=== PATIENT | female | born 1985 | race Two or more races ===

== ENCOUNTER 2022-07-11 09:29 | Emergency (ER) | payer OTHER ==
[~2022-07-11] VITALS: Ht 170.2 cm; Wt 67.1 kg
--- NOTE | 2022-07-11 09:50 | NUR ---
BIB SELF C/C MECHANICAL FALL. A/O X 3.
[2022-07-11] MEDS ORDERED: ACETAMINOPHEN ES 500 MG TABLET PO ONE (10:00)
--- NOTE | 2022-07-11 10:14 | NUR ---
BLOOD SAMPLES OBTAINED
[2022-07-11] MEDS ORDERED: ACETAMINOPHEN ES 500 MG TABLET ONE (10:16)
[2022-07-11] MEDS ORDERED: LIDOCAINE 1% INJ 50 ML MDV IJ ONE (11:25)
--- NOTE | 2022-07-11 11:56 | NUR ---
IV removed. Catheter intact and site benign. Pressure and 4x4 applied to site. No bleeding noted.
[2022-07-11 12:11] VITALS: BP 136/82
--- NOTE | 2022-07-11 12:12 | NUR ---
Patient discharged to home in stable condition. Written and verbal after care instructions given. Patient verbalizes understanding of instruction.
== END 2022-07-11 12:12 | disposition home or self-care (01) ==
LOC: ER 09:37
DX: S01.01XA Laceration without foreign body of scalp, initial encounter (principal); R51.9 Headache, unspecified; J45.909 Unspecified asthma, uncomplicated; Z88.0 Allergy status to penicillin; W18.30XA Fall on same level, unspecified, initial encounter; Y93.89 Activity, other specified; Y92.89 Other specified places as the place of occurrence of the external cause; Y99.8 Other external cause status
CPT/HCPCS: 99284; 70450; 12002; J3490; A6403

== ENCOUNTER 2022-07-25 08:58 | Emergency (ER) | payer OTHER ==
[~2022-07-25] VITALS: Ht 170.2 cm; Wt 77.1 kg
[2022-07-25 09:05] VITALS: BP 119/81
--- NOTE | 2022-07-25 09:41 | NUR ---
Patient discharged to home in stable condition. Written and verbal after care instructions given. Patient verbalizes understanding of instruction.
--- NOTE | 2022-07-25 09:41 | NUR ---
staple removed by emt
== END 2022-07-25 09:42 | disposition home or self-care (01) ==
LOC: ER 09:05
DX: S01.01XD Laceration without foreign body of scalp, subsequent encounter (principal); J45.909 Unspecified asthma, uncomplicated; Z88.0 Allergy status to penicillin; X58.XXXD Exposure to other specified factors, subsequent encounter